=== PATIENT | female | born 1985 | race Two or more races ===

== ENCOUNTER 2024-05-30 12:30 | Outpatient (CLI) | payer OTHER ==
--- NOTE | 2024-06-02 09:39 | Ultrasound Report ---
LIMITED ULTRASOUND OF RIGHT BREAST: 05/30/2024 CLINICAL: Patient returns today to evaluate a focal asymmetry in the right breast. Comparison is made to exam dated: 09/28/2023 ultrasound - [facility]. Color flow and real-time ultrasound of the right breast 2 o'clock region were performed. Luo scale images of the real-time examination were reviewed. There is a 0.9 cm x 0.3 cm x 0.6 cm wider than tall oval mass with a circumscribed margin in the righ t breast at 2 o'clock middle depth 4 cm from the nipple. This oval mass is hypoechoic with no floor covering contractor ior acoustic shadowing or enhancement. This abnormality is not significantly changed and correlates as palpated and with previous ultrasound findings. Color flow imaging demonstrates that there is no vascularity present. IMPRESSION: INCOMPLETE: NEEDS ADDITIONAL IMAGING EVALUATION The 0.9 cm x 0.3 cm x 0.6 cm wider than tall oval mass in the right breast most likely is a fibroaden marjan but remains indeterminate. A diagnostic bilateral mammogram could not be performed today but is recommended. The patient will return for bilateral diagnostic evaluation before follow up recommenda tions are given. Findings and recommendations were conveyed to the patient during today's evaluation. This exam was interpreted at Station ID: [id number]. Electronically Signed By: Zack Duarte M.D. aty/:05/30/2024 13:50:31 Ultrasound BI-RADS: 0 Indeterminate BI-RADS CATEGORY: (0) - 0 RECOMMENDATION: (ADDMAM) - Recommend additional mammographic views. [id number] Immediate follow-up LATERALITY: (B)
== END 2024-05-30 12:31 | disposition home or self-care (01) ==
LOC: DI 12:30
PROVIDERS: ATTEND Physician Assistant
DX: N63.12 Unspecified lump in the right breast, upper inner quadrant (principal)